=== PATIENT | female | born 1970 | race Caucasian/White ===

== ENCOUNTER 2017-12-28 05:16 | Day surgery (SDC) | payer OTHER, SELFPAY ==
[2017-12-28 05:46] VITALS: BP 97/51; PULSE 50; RESP 16; TEMP 36.8; O2SAT 96; BMI 35.0
--- NOTE | 2017-12-28 06:43 | OP.PCM_ITS ---
Report of Operation Date of Procedure: 12/28/17 Pre-Operative Diagnosis: Right Carpal Tunnel syndrome Post-Operative Diagnosis: Right Carpal Tunnel syndrome Surgery/Procedure Performed:: Right Carpal Tunnel release Description of Surgical Findings:: complete release tcl ordnance technician: None Type of Anesthesia:: Block,Michael Anesthesiologist: Yosef Villa Special Medications: ancef iv Estimated Blood Loss (mL): 2 ml Fluids Replaced: Crystalloid Description of Procedure: Brief history operative indications: 47-year-old female who failed conservative measures for right carpal tunnel syndrome patient wished to proceed with right open carpal tunnel release. After discussing risks and benefits including but not limited to blood loss, DVTs, PEs, neurovascular damage, infection, hematoma and general risk of anesthesia, the patient demonstrated understanding wish to proceed with right open carpal tunnel release Procedure: On the date of the procedure, the patient's right upper extremity was marked in the preoperative area. Patient was taken back to the operating room, where the tourniquet was placed on the right upper extremity. Patient was given light sedation. All bony prominences are identified well-padded. Anesthesia assumed control C-spine and airway and remained in control throughout the remainder the procedure. Michael block was administered by anesthesia. The right upper extremity was prepped in sterile fashion. Surgeon then scrub. Upon reentering the room, the right upper extremity was prepped in a standard orthopedic fashion. A timeout was called and everyone agreed upon the side, the site, the procedure to be performed, patient identity and antibiotics given. The incision was marked out. Incision was taken at the skin subtenons tissue fat down to fascia. Fascia was then lightly tethered until the median nerve was visible. A [place] was placed proximally and distally, and then scissors were placed proximally and distally to release the transverse carpal ligament. During the release the others were never completely closed. The [place] was then placed proximally and distally once more to verify the transverse carpal ligament had been adequately released. The wound was then copiously irrigated out with normal saline. Wound was then closed using 3-0 nylon suture. 10 cc of 50-50 mixture of 1% lidocaine and 0.5% Sensorcaine without epinephrine injection was given. Xeroform dressing was placed, sterile dressing was placed, compressive dressing was placed. Tourniquet was let down. Volar splint was placed. Patient was awakened by anesthesia and transferred to the PACU for recovery. Postoperative plan: The patient will follow up in 2 weeks for removal splint removal sutures. At that time if they are doing well they will follow-up as needed. - Complications none - Admit VTE Documentation VTE Present on Admission: No VTE Mechan Device Prophylaxis: SCD's, Thigh High FIGUEROA Mosher VTE Pharm Prophylaxis ordered?: No Reason prophylaxis not ordered:: Treatment Not Indicated
[2017-12-28 07:43] VITALS: BP 108/77; BP 97/51; PULSE 65; RESP 16; TEMP 36.5; O2SAT 98
[2017-12-28 07:45] VITALS: BP 103/74; BP 97/51; PULSE 58; RESP 16; O2SAT 98
[2017-12-28 07:50] VITALS: BP 110/69; BP 97/51; PULSE 54; RESP 16; O2SAT 95
[2017-12-28 07:55] VITALS: BP 111/77; BP 97/51; PULSE 62; RESP 16; TEMP 36.4; O2SAT 97
[2017-12-28 08:15] VITALS: BP 97/51
== END 2017-12-28 08:21 | disposition home or self-care (01) ==
LOC: SDC 05:20 → AC 05:22
PROVIDERS: Family Provider Family Medicine; PCP Family Medicine; Visit Provider Specialist
PROC: (CPT 64721; principal; 2017-12-28 07:00)
DX: G56.01 Carpal tunnel syndrome, right upper limb (principal); Z87.891 Personal history of nicotine dependence
CPT/HCPCS: 64721; J7120

== ENCOUNTER → 2019-12-18 | Outpatient (CLI) | payer BC, SELFPAY ==
--- NOTE | 2019-12-18 16:57 | EKG12_ITS ---
Test Reason : PRE OP Blood Pressure : / mmHG Vent. Rate : 051 BPM Atrial Rate : 051 BPM P-R Int : 134 ms QRS Dur : 090 ms QT Int : 446 ms P-R-T Axes : 047 032 026 degrees QTc Int : 411 ms Sinus bradycardia Otherwise normal ECG Confirmed by AUSTIN NOLASCO, ANGELI ([id number]), editor at large TANI RENTERIA ([id number]) on 12/19/2019 8:50:56 AM Referred By: Bill Combs Confirmed By:ANGELI AVILA MD
[2019-12-18 17:20] LABS: Hematocrit 39.3 % (37-47); Hemoglobin 13.4 g/dL (12.0-15.0); Mean Corp Hgb Conc 34.1 g/dL (32-36); Mean Corpuscular Hgb 30.6 pg (27.0-32.0); Mean Corpuscular Volume 89.7 fL (81-99); Mean Platelet Vol. 12.1 fl (6.2-12.0); Platelet Count 143 K/mm3 (150-450); RBC Distribution Width CV 11.9 % (11.6-14.6); RBC Distribution Width SD 38.6 fl (35.1-43.9); Red Blood Count 4.38 M/mm3 (4.2-5.4); White Blood Count 7.9 K/mm3 (4.4-11.0)
[2019-12-18 18:01] LABS: Anion Gap 4 (5-15); BUN 18 mg/dL (7-18); BUN/Creat Ratio 19.8 RATIO (10-20); Calcium,Total 8.6 mg/dL (8.5-10.1); Chloride 107 mmol/L (98-107); Creatinine, Serum 0.91 mg/dL (0.55-1.02); EST Glomerular Filtration Rate 70 mL/min (>60); Est Glom Filt Rate - Afr Amer 85 mL/min (>60); Glucose 95 mg/dL (74-106); Potassium 3.7 mmol/L (3.5-5.1); Sodium Level 138 mmol/L (136-145)
== END | disposition home or self-care (01) ==
LOC: MTDU 18:05
PROVIDERS: PCP Family Medicine; Referring Provider Physician Assistant; Visit Provider Physician Assistant
DX: Z01.818 Encounter for other preprocedural examination (principal)
CPT/HCPCS: 36415; 80048; 85027; 87635; 93005; G2023; U0003

== ENCOUNTER 2021-07-21 08:35 | Outpatient (CLI) | payer BC, SELFPAY ==
--- NOTE | 2021-07-21 08:46 | EKG12_ITS ---
Test Reason : PREOP Blood Pressure : / mmHG Vent. Rate : 050 BPM Atrial Rate : 050 BPM P-R Int : 138 ms QRS Dur : 084 ms QT Int : 438 ms P-R-T Axes : 048 012 019 degrees QTc Int : 399 ms Sinus bradycardia Low voltage QRS Borderline ECG Confirmed by AUSTIN NOLASCO, ANGELI ([id number]), fan mail editor TANI RENTERIA ([id number]) on 07/22/2021 8:13:35 AM Referred By: MAKI Confirmed By:ANGELI AVILA MD
[2021-07-21 09:32] LABS: Hematocrit 39.2 % (37-47); Hemoglobin 13.8 g/dL (12.0-15.0); Mean Corp Hgb Conc 35.2 g/dL (32-36); Mean Corpuscular Hgb 30.8 pg (27.0-32.0); Mean Corpuscular Volume 87.5 fL (81-99); Mean Platelet Vol. 11.4 fl (6.2-12.0); Platelet Count 275 K/mm3 (150-450); RBC Distribution Width CV 12.2 % (11.6-14.6); RBC Distribution Width SD 38.9 fl (35.1-43.9); Red Blood Count 4.48 M/mm3 (4.2-5.4)
[2021-07-21 09:56] LABS: Anion Gap 6 (5-15); BUN 22 mg/dL (7-18); BUN/Creat Ratio 25.5 RATIO (10-20); Calcium,Total 8.9 mg/dL (8.5-10.1); Chloride 104 mmol/L (98-107); Creatinine, Serum 0.86 mg/dL (0.55-1.02); EST Glomerular Filtration Rate 74 mL/min (>60); Est Glom Filt Rate - Afr Amer 90 mL/min (>60); Glucose 101 mg/dL (74-106); Potassium 3.6 mmol/L (3.5-5.1); Sodium Level 139 mmol/L (136-145)
== END 2021-07-21 23:59 | disposition home or self-care (01) ==
PROVIDERS: PCP Family Medicine; Visit Provider Physician Assistant
DX: Z01.810 Encounter for preprocedural cardiovascular examination (principal); Z01.818 Encounter for other preprocedural examination; Z20.822 Contact with and (suspected) exposure to COVID-19
CPT/HCPCS: 36415; 80048; 85027; 87635; 93005; C9803; U0003; U0005